=== PATIENT | female | born 2000 | race African-American/Black ===

== ENCOUNTER 2020-08-16 10:43 | Emergency (ER) | payer OTHER, SELFPAY ==
--- NOTE | 2020-08-16 10:49 | ED.GENADULT ---
HPI - General Adult General Chief complaint: Nausea/Vomiting/Diarrhea Stated complaint: Nausea Time Seen by Provider: 08/16/20 10:49 Source: patient Mode of arrival: ambulatory Limitations: no limitations History of Present Illness HPI narrative: 20-year-old female patient presents to the [facility] with complaints of vomiting and nausea that started about 5 AM this morning. Patient states she did eat some Hector chicken before bed last night. Patient states she started vomiting this morning and has vomited about 6 times. Patient states she has had one episode of diarrhea. Patient states that her last period was around July 19 and states that she could be but has not tested. Patient states she has had a little bit of abdominal pain. Denies fevers, body aches or chills. Related Data Home Medications Medication Instructions Recorded Confirmed No Home Medications 08/16/20 08/16/20 Allergies Allergy/AdvReac Type Severity Reaction Status Date / Time No Known Allergies Allergy Verified 08/16/20 10:59 Review of Systems Review of Systems: Narrative: CONSTITUTIONAL: Denies fever, chills, or sweats. EYES: Denies visual changes, redness, or discharge. ENT: Denies rhinorrhea, congestion, sore throat, or otalgia. CARDIOVASCULAR: Denies chest pain, palpitations, or edema. RESPIRATORY: Denies cough or dyspnea. GASTROINTESTINAL: Positive abdominal pain, nausea, vomiting, and diarrhea. GENITOURINARY: Denies dysuria or hematuria. SKIN: Denies rash or itching. MUSCULOSKELETAL: Denies back pain, joint pain, or myalgia. NEUROLOGIC: Denies headache, numbness, or weakness. PSYCHIATRIC: Denies anxiety or depression. PMFSH Comments At the time of my signature I agree with nursing past medical history, surgical, social, and family history. There is no relevant family history pertinent to the presenting complaint. Exam Narrative: Exam Narrative: GENERAL: Well-appearing, well-nourished, and in no acute distress. HEAD: Normocephalic, atraumatic. EYES: PERRLA and EOMI. ENT: Nares clear, no rhinorrhea or epistaxis. Mucous membranes moist. NECK: Supple. No lymphadenopathy CHEST: Clear to auscultation. No respiratory distress. HEART: Regular rate and rhythm. No murmur heard. Normal peripheral pulses. ABDOMEN: Soft, flat, nondistended. No guarding, rebound tenderness, or rigid. Patient does have some tenderness to the right lower quadrant and umbilicus area on palpation. No pulsatilla masses. Bowel sounds present in right upper and left upper quadrants. No organomegaly. Negative Mari?s sign. Positive periumbicial tenderness. No Supra public tenderness or distension. Good femoral pulses bilaterally. No hernia noted. No scars or surface trauma. EXTREMITIES: Normal range of motion. No edema. SKIN: Warm, dry, no rash. NEURO: No focal deficits. Alert and oriented x3. Course Vital Signs Vital signs: Vital Signs Temperature 36.4 C L 08/16/20 11:08 Pulse Rate 104 H 08/16/20 11:08 Respiratory Rate 16 08/16/20 11:08 Blood Pressure 126/86 08/16/20 11:08 Pulse Oximetry 99 08/16/20 11:08 Temperature 36.4 C L 08/16/20 11:08 Pulse Rate 104 H 08/16/20 11:08 Respiratory Rate 16 08/16/20 11:08 Blood Pressure 126/86 08/16/20 11:08 Pulse Oximetry 99 08/16/20 11:08 Vital signs reviewed Transfer Transfered to: [facility]: Other (private vechile) Transfer rationale: Abdominal pain with N/V/D Accepting physician: JEANINE Elliott Transfer comments: Called and spoke with JEANINE Watkins at [facility] and gave them report and sending patient there for evaluation of RLQ and periumbical pain with nausea and vomiting and 1 episode of diarrhea. We did do a test on her which was negative, rapid Covid which was negative and gave her a dose of Zofran. Coming over for further evaluation. Earl is aware the plan of care denies any other questions or concerns at this time. Medical Decision Making Differen
[2020-08-16 11:08] VITALS: BP 126/86; PULSE 104; RESP 16; TEMP 36.4; O2SAT 99
[2020-08-16] MEDS: ONDANSETRON HCL ODT 4 MG TABLET PO (11:28)
== END 2020-08-16 11:55 | disposition short-term general hospital (02) ==
PROVIDERS: Emergency Provider Nurse Practitioner Family
DX: R10.31 Right lower quadrant pain (principal); R11.2 Nausea with vomiting, unspecified; Z20.822 Contact with and (suspected) exposure to COVID-19
CPT/HCPCS: 81025; 87426; 99203; A9270; C9803; G0463

== ENCOUNTER 2020-08-16 12:09 | Emergency (ER) | payer OTHER, SELFPAY ==
--- NOTE | ~2020-08-16 | CT_ITS ---
EXAMINATION: CT abdomen pelvis w con DATE: 08/16/2020 13:18 INDICATION: Abdominal pain. TECHNIQUE: Computed tomography (CT) of the abdomen and pelvis was performed with 100 mL Omnipaque 350 intravenous contrast. Automated exposure control and iterative reconstruction technique were employe d. The dose-length product was 366.75 mGy-cm. COMPARISON: None. FINDINGS: The visualized portions of the lung bases are clear without pneumonia or pleural effusion. The heart size is normal. No pericardial effusion. The liver, gallbladder, spleen, pancreas, adrenal glands, and kidneys are normal. There are no dilated loops of bowel. The appendix is normal. There ar e no pathologically enlarged lymph nodes. There is trace pelvic ascites. There is dextrocurvature of thoracolumbar spine. IMPRESSION: 1. No etiology for the patient's symptoms. Reviewed, dictated and finalized at location A.
[2020-08-16 12:20] VITALS: BP 91/73; PULSE 95; RESP 18; TEMP 36.7; O2SAT 100
--- NOTE | 2020-08-16 12:26 | ED.GENADULT ---
HPI - General Adult General Chief complaint: Abdominal Pain Stated complaint: N/V Time Seen by Provider: 08/16/20 12:10 Source: RN notes reviewed History of Present Illness HPI narrative: Patient presents emergency department from urgent care for abdominal pain. Patient states since 5 AM this morning she has had diffuse abdominal pain described as cramping. Associate with nausea vomiting one episode of diarrhea. States she tried taking Tylenol at home and was given Zofran by urgent care with relief of nausea. Patient denies any fevers or chills chest pain shortness of breath or any other symptoms Related Data Allergies Allergy/AdvReac Type Severity Reaction Status Date / Time No Known Allergies Allergy Verified 08/16/20 12:22 Review of Systems Review of Systems: Narrative: Gen.: Denies fevers or chills ENT: Denies congestion Respiratory: Denies shortness of breath or cough CV: Denies chest pain or palpitations GI: See HPI denies burning, urgency, frequency or hematuria Musculoskeletal: Denies back pain or muscle pain Neuro: Denies numbness, tingling, weakness or focal weakness Skin: Denies rash Except as documented, all other systems reviewed and negative [facility] Social History Social History (Updated 08/16/20 @ 12:29 by Aric Cheek DO) Smoking status: Current every day smoker Exam Narrative: Exam Narrative: APPEARANCE: No acute distress, nontoxic, resting in bed HEENT: Normocephalic, atraumatic, OMM RESPIRATORY: No respiratory distress, clear to auscultation bilaterally with no rhonchi wheezing or rales CARDIOVASCULAR: RRR s murmur ABDOMINAL: Soft, nondistended diffusely tender palpation no rebound or guarding MUSCULOSKELETAl: Moves all extremities. No clubbing, cyanosis or edema. NEURO: Awake and alert. Following commands, speech normal, no focal deficits SKIN:: Warm, dry. Normal Color PSYCHIATRIC: Normal affect/mood Course Course Emergency Course: Patient with bedside done urgent care that was negative today it is documented in the E HR Patient initially tried p.o. challenge after Zofran with again becoming nauseated given Phenergan with improvement of symptoms Patient states that they are feeling much better at this time. States abdominal pain has resolved. Repeat abdominal exam shows the patient's abdomen to be soft and nontender. Discussed with patient results of workup and diagnosis. Discussed need for follow-up with primary care physician, reasons to return to the emergency department in proper use of medication. Patient understands and agrees to current treatment plan. Patient able to drink water in ED with no emesis Vital Signs Vital signs: Vital Signs Temperature 98.1 F 08/16/20 12:20 Pulse Rate 95 08/16/20 12:20 Respiratory Rate 18 08/16/20 12:20 Blood Pressure 91/73 L 08/16/20 12:20 Pulse Oximetry 100 08/16/20 12:20 Temperature 98.1 F 08/16/20 12:20 Pulse Rate 80 08/16/20 14:18 Respiratory Rate 18 08/16/20 14:18 Blood Pressure 106/66 08/16/20 14:18 Pulse Oximetry 100 08/16/20 14:18 Medical Decision Making MDM Narrative Medical decision making narrative: Patient's abdomen is soft without significant pain or signs of surgical abdomen on serial exams. Lab and x-ray evaluations are reviewed and patient is felt to be a reasonable candidate for outpatient management. Patient was instructed as to limitations of x-ray and laboratory evaluation and encouraged to return to ED or primary physician for repeat exam in 12 hours if continued or worsening pain Vital Signs Vital Signs: Vital Signs Temperature 98.1 F 08/16/20 12:20 Pulse Rate 95 08/16/20 12:20 Respiratory Rate 18 08/16/20 12:20 Blood Pressure 91/73 L 08/16/20 12:20 Pulse Oximetry 100 08/16/20 12:20 Temperature 98.1 F 08/16/20 12:20 Pulse Rate 80 08/16/20 14:18 Respiratory Rate 18 08/16/20 14:18 Blood Pressure 106/66 08/16/20 14:18 Pulse Oximetry 100 08/16
[2020-08-16 12:29] LABS: Basophils Percent Auto 0.1 % (0.2-1.2); Eosinophils Absolute Auto 0.1 K/mm3 (0-0.3); Eosinophils Percent Auto 0.6 % (0-4.4); Hematocrit 39.4 % (37.0-47.0); Hemoglobin 13.5 g/dL (12.0-15.0); Immature Granulocyte Absolute 0.03 K/mm3 (0.00-0.031); Immature Granulocyte Percent A 0.4 % (0-0.5); Lymphocytes Absolute Auto 0.52 K/mm3 (0.9-3.2); Lymphocytes Percent Auto 6.2 % (18.3-44.2); Mean Corpuscular HGB Conc 34.3 g/dl (32-36); Mean Corpuscular Hemoglobin 29.1 pg (26-34); Mean Corpuscular Volume 84.9 fl (80-100); Monocytes Absolute Auto 0.5 K/mm3 (0.1-0.6); Monocytes Percent Auto 5.6 % (2.6-8.5); Neutrophils Absolute Auto 7.3 K/mm3 (1.3-6.7); Neutrophils Percent Auto 87.1 % (45.5-73.1); Platelet Count Result 223 k/mm3 (150-375); Red Blood Count 4.64 M/mm3 (4.2-5.4); White Blood Count 8.4 K/mm3 (4.5-10.0)
[2020-08-16] MEDS: SODIUM CHLORIDE 0.9% IV 1,000 ML 999 ML IV CONT ×2 (12:32→13:10)
[2020-08-16] MEDS: FAMOTIDINE 20 MG/2 ML VIAL IV PUSH (12:32)
[2020-08-16 12:41] LABS: Alanine Aminotransferase 20 U/L (4-35); Albumin Level 4.6 g/dL (3.5-5.1); Alkaline Phosphatase 93 U/L (38-126); Anion Gap 7 mmol/L (8-16); Aspartate Amino Transferase 29 U/L (14-36); Bilirubin,Total 0.4 mg/dL (0.2-1.3); Blood Urea Nitrogen 11 mg/dL (7-17); Calcium 9.1 mg/dL (8.4-10.2); Carbon Dioxide 27 mmol/L (22-30); Chloride 106 mmol/L (98-107); Estimated CRCL calculation 110 ml/min; Estimated Glomerular Filt Rate > 60; Glucose 110 mg/dL (65-105); Lipase 68 U/L (23-300); Potassium 4.3 mmol/L (3.4-5.0); Sodium 140 mmol/L (137-145)
[2020-08-16 13:00] LABS: Add Urine Microscopic? YES; Appearance Urine Clear (Clear); Bilirubin Urine Negative (Negative); Blood Urine Negative (Negative); Color Urine Yellow (Yellow); Glucose Urine UA Negative (Negative); Ketones Urine Negative (Negative); Leukocyte Esterase Ur Negative LEU/UL (Negative); Nitrate Urine Negative (Negative); Protein Urine 1+ mg/dL (Negative); RBC Urine 0-2 /hpf (0-2); Specific Grav Ur 1.015 (1.001-1.035); Squamous Epithelial Cell Urine Few /hpf (Few); Urobilinogen Urine Negative mg/dL (<2.0); WBC Urine 0-3 /hpf
[2020-08-16] MEDS: KETOROLAC 30 MG/ML VIAL (*BKC) IV PUSH (13:10)
[2020-08-16 14:18] VITALS: BP 106/66; PULSE 80; RESP 18; O2SAT 100
[2020-08-16] MEDS: DICYCLOMINE HCL INJ 20 MG/2 ML VIAL IM (14:27)
[2020-08-16] MEDS: PROMETHAZINE HCL 25 MG/ML AMPUL 12.5 MG IV PUSH (15:47)
[2020-08-16 16:54] VITALS: BP 97/51; PULSE 90; RESP 18; O2SAT 100
== END 2020-08-16 16:57 | disposition home or self-care (01) ==
PROVIDERS: Emergency Provider Emergency Medicine; PCP Family Medicine
DX: R10.9 Unspecified abdominal pain (principal); R11.2 Nausea with vomiting, unspecified; F17.200 Nicotine dependence, unspecified, uncomplicated
CPT/HCPCS: 36415; 74177; 80053; 81001; 81025; 83690; 85025; 87426; 96361; 96372; 96374; 96375; 99284; A9270; C9803; J0500; J1885; J2550; J7030; Q9967

== ENCOUNTER 2021-01-10 12:28 | Emergency (ER) | payer OTHER, SELFPAY ==
[2021-01-10 12:33] VITALS: BP 107/79; PULSE 88; RESP 16; TEMP 36.3; O2SAT 100
[2021-01-10 14:44] VITALS: BP 128/69; PULSE 61; O2SAT 100
--- NOTE | 2021-01-10 15:44 | ED.GENADULT ---
HPI - General Adult General Chief complaint: Eye Problems Stated complaint: bleach in lt eye Time Seen by Provider: 01/10/21 14:46 Source: patient and RN notes reviewed Mode of arrival: ambulatory Limitations: no limitations History of Present Illness HPI narrative: Patient is a 20-year-old female who presents to emergency department for evaluation of bleach exposure to the left eye patient washed out the eye thoroughly she notes mild discomfort of the eye denies any other complaints or symptoms at this time Related Data Allergies Allergy/AdvReac Type Severity Reaction Status Date / Time No Known Allergies Allergy Verified 08/16/20 12:22 Review of Systems Review of Systems: All systems reviewed & are unremarkable except as noted in HPI and below PMFSH Social History Social History Smoking status: Current every day smoker Gender identity (if verbalized by the patient): Female Exam Narrative: GENERAL: Well-appearing, well-nourished, and in no acute distress. HEAD: Normocephalic, atraumatic. EYES: PERRLA and EOMI. no conjunctival injection or fluorescein uptake ENT: Nares clear, no rhinorrhea or epistaxis. Mucous membranes moist. Oropharynx without tonsillar hypertrophy exudate or other lesions. Bilateral TMs pearly hayes nonbulging NECK: Supple. No adenopathy or masses. No carotid bruits or JV CHEST: Clear to auscultation. No respiratory distress. No wheezes rales or rhonchi HEART: Regular rate and rhythm. No murmur heard. EXTREMITIES: Normal range of motion. No edema. SKIN: Warm, dry, no rash. NEURO: No focal deficits. Alert and oriented x3. Cranial nerves II through XII grossly intact PSYCH: Normal mood and affect. Course Course Emergency Course: Patient with chemical conjunctivitis no concerning findings will be discharged with ophthalmology follow-up given reasons to return felt appropriate for outpatient reevaluation Vital Signs Vital signs: Vital Signs Temperature 97.3 F L 01/10/21 12:33 Pulse Rate 88 01/10/21 12:33 Respiratory Rate 16 01/10/21 12:33 Blood Pressure 107/79 01/10/21 12:33 Pulse Oximetry 100 01/10/21 12:33 Temperature 97.3 F L 01/10/21 12:33 Pulse Rate 61 01/10/21 14:44 Respiratory Rate 16 01/10/21 12:33 Blood Pressure 128/69 01/10/21 14:44 Pulse Oximetry 100 01/10/21 14:44 Medical Decision Making [facility] Narrative Medical decision making narrative: Patient in room no distress at evaluation will be discharged home Vital Signs Vital Signs: Vital Signs Temperature 97.3 F L 01/10/21 12:33 Pulse Rate 88 01/10/21 12:33 Respiratory Rate 16 01/10/21 12:33 Blood Pressure 107/79 01/10/21 12:33 Pulse Oximetry 100 01/10/21 12:33 Temperature 97.3 F L 01/10/21 12:33 Pulse Rate 61 01/10/21 14:44 Respiratory Rate 16 01/10/21 12:33 Blood Pressure 128/69 01/10/21 14:44 Pulse Oximetry 100 01/10/21 14:44 Discharge Plan Discharge Clinical Impression: Acute chemical conjunctivitis Patient Disposition: Home, Self-Care Condition: Stable Instructions: Antibiotic Form, Conjunctivitis (ED) Additional Instructions: Follow-up with ophthalmology in the next day to set up for reevaluation Return if symptoms worsen or concerns or any increase in redness swelling pain visual changes nausea vomiting patient Follow patient education sheets use [id number] preservative-free tears every 2 hours for symptom relief Prescriptions: No Action famotidine [Pepcid] 20 mg tablet 20 mg PO DAILY Qty: 14 RF: 0 ibuprofen [IBU] 600 mg tablet 600 mg PO Q6H PRN (Reason: pain) Qty: 20 RF: 0 ondansetron 4 mg tablet,disintegrating 4 mg PO Q6H PRN (Reason: nausea and vomiting) Qty: 10 RF: 0 Follow-up/Referrals: Renea Casper MD [Primary Care Provider] - Ivonne Briceno [Outside] Ivonne Fuchs [Outside] Stand Alone Forms: Work/School
== END 2021-01-10 16:28 | disposition home or self-care (01) ==
PROVIDERS: Emergency Provider Emergency Medicine; PCP Family Medicine
DX: T54.91XA Toxic effect of unspecified corrosive substance, accidental (unintentional), initial encounter (principal); H10.212 Acute toxic conjunctivitis, left eye; F17.200 Nicotine dependence, unspecified, uncomplicated
CPT/HCPCS: 99282